=== PATIENT | male | born 1975 | race Caucasian/White ===

== ENCOUNTER 2017-04-05 13:05 | Emergency (ER) | payer OTHER ==
[~2017-04-05] VITALS: Ht 182.9 cm; Wt 81.6 kg
--- NOTE | 2017-04-05 13:50 | ED MVC/FALL/TRAUMA COMPLAINT ---
History of Present Illness General Chief Complaint: Upper Extremity Problem Stated Complaint: STERNUM PAIN, HIT WITH SHOULDER Source: patient Exam Limitations: no limitations Vital Signs & Intake/Output Vital Signs & Intake/Output Vital Signs Date Time Temp Pulse Resp B/P B/P Pulse O2 O2 Flow FiO2 Mean Ox Delivery Rate 04/05 1447 98.2 76 17 152/74 99 Room Air 04/05 1435 99 Room Air 04/05 1309 98.5 93 18 167/82 98 Room Air Allergies Uncoded Allergies: GAMMA-GLUBULIN (Severe, "CANNOT HAVE IT DUE TO AN AUTOIMMUNE DISEASE" 04/05/17) Reconcile Medications Ibuprofen 800 MG TABLET 1 TAB PO TID PAIN Triage Note: 41 Y/O MALE C/O PAIN TO "STERNUM" X 1 WEEK. STATES HE WAS PLAYING BASKETBALL 1 WEEK AGO AND GOT HIT IN CHEST WITH SOMEONES SHOULDER, "I SAT FOR 10 MINUTES AND THEN PLAYED FOR 2 ADDITIONAL HOURS". 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 Triage Nurses Notes Reviewed? yes Onset: Abrupt Duration: week(s): (1), constant, continues in ED Timing: recent history Severity: moderate, severe Injuries/Fall Location: chest Method of Injury: direct blow Loss of Consciousness: no loss of consciousness HPI: 41-year-old male comes into emergency room for further evaluation of chest wall pain on the right side after being elbowed in the chest 1 week ago during a basketball game. Patient was playing basketball 1 week ago. Patient got an elbow to the right side of his chest. Patient felt winded and pain immediately. He sat out for about 10 minutes and then resumed playing basketball. He reported that the first couple days he had some bruising to the area and had pain with deep breath. The bruising has improved but he has had persistent pain on the right side. Pain is worse with a deep breath. Pain is worse with palp patient in one particular area. Tan with range of motion. Patient denies any head trauma, neck pain, abdominal pain, extremity injuries vomiting or any other concerns. (NU COKER) Past History Travel History Traveled to [place] past 21 day No Medical History Any Pertinent Medical History? 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 No (NU COKER) Review of Systems Review of Systems Constitutional: Reports: no symptoms. Eyes: Reports: no symptoms. Ears, Nose, Throat, Mouth: Reports: no symptoms. Respiratory: Reports: no symptoms. Cardiovascular: Reports: no symptoms. Gastrointestinal/Abdominal: Reports: no symptoms. Genitourinary: Reports: no symptoms. Musculoskeletal: Reports: see HPI. Skin: Reports: no symptoms. Neurological/Psychological: Reports: no symptoms. All Other Systems: Reviewed and Negative (NU COKER) Physical Exam Physical Exam General Appearance: well developed/nourished, no apparent distress, alert Head: atraumatic, normal appearance Eyes: Bilateral: normal appearance. Ears, Nose, Throat, Mouth: hearing grossly normal, moist mucous membrane Neck: normal inspection, supple, full range of motion, paraspinous muscle tender Respiratory: normal breath sounds, no respiratory distress, POINT TENDERNESS TO RIGHT SIDE OF CHEST WALL ANTERIORLY, NO MIDLINE STERNAL PAIN, NO BRUISING, NO SWELLING APPRECIATED, Cardiovascular: regular rate/rhythm Gastrointestinal: normal bowel sounds, soft, non-tender, NO GUARDING, Back: normal inspection, normal range of motion Extremities: normal range of motion Neurologic/Psych: awake, alert, oriented x 3 Skin: intact, normal color Core Measures ACS in differential dx? No Severe Sepsis Present: No Septic Shock Present: No (NU COKER) Progress Differential Diagnosis: abd injury, C/T/L spine injury, ext injury, ICH, pelvis injury, pnemothorax, spinal cord injury, RIB FRACTURE, PULMONARY CONTUSION, STERNAL FRACTURE, Plan of Care: Orders Procedure Date/time Status XRY-STERNUM 04/05 1325 Active XRY-CHEST XRAY, PA AND LATERAL 04/05 132 Active Diagnostic Imaging: Viewed by Me: Radiology Read. Discussed w/RAD: Radiology Read. Radiology Impression: SERVICE DATE: 04/05/17-1453 EXAM TYPE: RAD - XRY-RIBS UNILATERAL-RIGHT EXAMINATIONS: CHEST 1 VIEW AND RIGHT RIBS CLINICAL INFORMATION: Right anterior rib pain. COMPARISON: Same day chest radiographs. TECHNIQUE: A PA radiograph of the chest was obtained in addition to several views of the right ribs. FINDINGS: The cardiac silhouette is not enlarged. The mediastinal and hilar contours are unremarkable. There are neither pleural effusions nor pneumothoraces. There are no consolidations. The osseous structures are unremarkable. Specifically, no rib fractures are identified. IMPRESSION: No evidence for acute disease. Specifically, no rib fractures identified. DICTATED BY: RACHELLE RIGGS MD DATE/TIME DICTATED:04/05/171526 WEB MOBILE DESIGNER: GLO , EXAM TYPE: RAD - XRY-CHEST XRAY, PA AND LATERAL; XRY-STERNUM EXAMINATIONS: CHEST 2 VIEWS AND STERNUM 3 VIEWS CLINICAL INFORMATION: Chest pain. COMPARISON: None. TECHNIQUE: PA and lateral views of the chest were obtained in addition to three views of the sternum. FINDINGS: The cardiac silhouette is not enlarged. The mediastinal and hilar contours are unremarkable. There are neither pleural effusions nor pneumothoraces. There are no consolidations. The osseous structures are unremarkable. Specifically, no sternal fractures are identified. IMPRESSION: No evidence for acute disease. Specifically, no sternal fractures identified. DICTATED BY: RACHELLE RIGGS MD DATE/TIME DICTATED:04/05/171444 WEB MOBILE DESIGNER:GLO DATE/TIME TRANSCRIBED:04/05/171444 Comments: 04/05/2017 5:54:22 PM Patient clinically looks well. Patient is nontoxic-appearing. Pain is reproducible on exam and worse with range of motion. Patient had a preceding injury. Pain is consistent with musculoskeletal pain. Pain is not consistent with acute coronary symptoms. No suspicion at this time. No evidence of acute trauma on the x-rays. Patient treated symptomatically and told to follow-up with primary care doctor for further evaluation. Case discussed with Dr. Serrano. He agrees with plan of care. (KANDY GARCIA,NU) Departure Departure Disposition: HOME OR SELF CARE Condition: Stable Clinical Impression Primary Impression: Contusion of rib on right side Referrals: UCHE SERRATO MD (PCP/Family) Additional Instructions: Take ibuprofen as prescribed. Follow-up with your primary care doctor. Return if any concerns worsening of symptoms. Please go overall results of today's visit with primary care doctor for any nonspecific findings. Departure Forms: Customer Survey General Discharge Information Prescriptions: Current Visit Scripts Ibuprofen 1 TAB PO TID #30 TAB (KANDY GARCIA,NU) PA/ASSISTANT MANAGER OF OPERATIONS Co-Sign Statement Statement: ED Attending supervision documentation- [] I saw and evaluated the patient. I have also reviewed all the pertinent lab results and diagnostic results. I agree with the findings and the plan of care as documented in the PA's/ASSISTANT MANAGER OF OPERATIONS's documentation. [X] I have reviewed the ED Record and agree with the PA's/ASSISTANT MANAGER OF OPERATIONS's documentation. [] Additions or exceptions (if any) to the PAs/ASSISTANT MANAGER OF OPERATIONS's note and plan are summarized below: [] (MANNY ROCK,CHAVA Mcallister)
[2017-04-05 14:47] VITALS: BP 152/74
--- NOTE | 2017-04-05 14:49 | RADIOLOGY REPORT ---
EXAMINATIONS: CHEST 2 VIEWS AND STERNUM 3 VIEWS CLINICAL INFORMATION: Chest pain. COMPARISON: None. TECHNIQUE: PA and lateral views of the chest were obtained in addition to three views of the sternum. FINDINGS: The cardiac silhouette is not enlarged. The mediastinal and hilar contours are unremarkable. There are neither pleural effusions nor pneumothoraces. There are no consolidations. The osseous structures are unremarkable. Specifically, no sternal fractures are identified. IMPRESSION: No evidence for acute disease. Specifically, no sternal fractures identified.
--- NOTE | 2017-04-05 15:32 | RADIOLOGY REPORT ---
EXAMINATIONS: CHEST 1 VIEW AND RIGHT RIBS CLINICAL INFORMATION: Right anterior rib pain. COMPARISON: Same day chest radiographs. TECHNIQUE: A PA radiograph of the chest was obtained in addition to several views of the right ribs. FINDINGS: The cardiac silhouette is not enlarged. The mediastinal and hilar contours are unremarkable. There are neither pleural effusions nor pneumothoraces. There are no consolidations. The osseous structures are unremarkable. Specifically, no rib fractures are identified. IMPRESSION: No evidence for acute disease. Specifically, no rib fractures identified.
[2017-04-05] MEDS ORDERED: IBUPROFEN800 M1 PO (15:51)
== END 2017-04-05 16:24 ==
LOC: ERH 13:05
DX: S20.211A Contusion of right front wall of thorax, initial encounter (principal); R07.89 Other chest pain; W51.XXXA Accidental striking against or bumped into by another person, initial encounter; Y92.310 Basketball court as the place of occurrence of the external cause; Y93.67 Activity, basketball
CPT/HCPCS: 71100-RT; 71120